=== PATIENT | female | born 1955 | race Hispanic/Latino ===

== ENCOUNTER 2024-09-18 16:27 | Outpatient (CLI) | payer MEDICARE, SELFPAY ==
--- NOTE | ~2024-09-18 | US_ITS ---
Procedure: Duplex Doppler examination of the bilateral carotids. Indication: Occlusion, stenosis Technique: Real time, color-flow and pulse wave Doppler examination of the bilateral carotids was performed. Findings: Quintero scale ultrasonography of the right neck demonstrated probable focal moderate to large plaque at the mid to distal right internal carotid artery. There was demonstration of normal color-flow and Dop pler waveforms within the right common, internal and external carotid arteries. The peak systolic jono ocities in the right common, internal and external carotid arteries were demonstrated to be 93 cm/sec , 236 cm/sec and 89 cm/sec respectively. The right ICA/CCA ratio was 3.1.The proximal right internal carotid artery demonstrates 0% stenosis relative to the normal distal artery lumen diameter. Quintero scale sonography of the left neck demonstrated no significant plaque. There was demonstration of normal color-flow and wave forms within the left common, internal and external carotid arteries. The peak systolic velocities in the left common, internal and external carotid arteries were demonstrate d to be 103cm/sec, 120 cm/sec and 92 cm/sec respectively. The left ICA/CCA ratio was 1.5. The proxima l left internal carotid artery demonstrates 0% stenosis relative to the normal distal artery lumen di ameter. There was antegrade flow demonstrated in the bilateral vertebral arteries. Impression: Elevated velocity at the distal right internal carotid artery is compatible with high-grade (greater than 70%) stenosis. Antegrade flow in the bilateral vertebral arteries. Note: The methodology used is an indirect measurement validated against a direct method (such as the NASCET criteria) that compares diameters at the stenosis to the distal ICA. Reviewed, dictated and finalized at location M. Impression: Elevated velocity at the distal right internal carotid artery is compatible wit h high-grade (greater than 70%) stenosis. Antegrade flow in the bilateral vertebral arteries. Note: The methodology used is an indirect measurement validated against a direct meth od (such as the NASCET criteria) that compares diameters at the stenosis to the distal ICA.
--- OUTSIDE RECORDS SUMMARY | 2024-09-18 16:33 | XMS_ITS | Referral Summary ---
Author Organization [facility] [facility] Address [address] [place] [address] Care Team Providers Care Garnett Mechanic Name Role Phone Mason Deras DO Primary Care Provider + Allergies No known active allergies Medications calcium citrate/vitamin D3 (CALCIUM CITRATE + ORAL) Take by mouth Active multivitamin capsule Take 1 capsule by mouth daily Active rosuvastatin (CRESTOR) 5 mg tablet TAKE 1 TABLET(5 MG) BY MOUTH DAILY 90 tablet 1 11/17/2022 Active aspirin 81 mg enteric coated tablet Take 1 tablet (81 mg total) by mouth daily Every other day Active Active Problems Problem Noted Date Diagnosed Date Encounter for Medicare annual wellness exam 04/19 Assessment & Plan (05/04/2022 1:23 PM ELECTRONIC PUBLICATIONS SPECIALIST): Chart reviewed COVID 08/22/2021 Assessment & Plan (08/22/2021 12:19 PM CDT): She feels no symptoms at the present time. I am going to hold off on antiviral. She will update me in 3 days. If she worsens she will let me know. We discussed 5 and 10 day quarantine. Bilateral carotid artery stenosis 07/30/2021 Assessment & Plan (07/30/2021 10:03 AM CDT): Assessment/plan: Asymptomatic moderate bilateral carotid artery stenosis. Recommend 81 mg ASA and statin therapy for risk factor modification. She will need lifelong surveillance of this. Follow-up in 6 months with repeat duplex as her velocities have increased from her prior study 6 months ago on the right side. Mixed hyperlipidemia 07/30/2021 Assessment & Plan (07/30/2021 8:44 AM CDT): Erin Well woman exam 11/13/2020 Full code status 05/01/2020 Assessment & Plan (05/02/2021 7:36 AM ELECTRONIC PUBLICATIONS SPECIALIST): No changes Assessment & Plan (05/01/2020 9:26 AM ELECTRONIC PUBLICATIONS SPECIALIST): Discussed with patient approximately 20minutes End of life issues/Advanced Directives/Healthcare Surrogate. Discussed DNR. Encouraged to discuss further with family and consult tax associate attorney or complete [place] approved form, which I would be glad to assist them with completion. All questions answered. polst form filled out and signed Immunizations Immunization Administration Dates Next Due Influenza, Quadrivalent, Hig h Dose, Preservative Free, Intrr 02/12/2020 Influenza, Unspecified 01/17/2022,01/17/2021 Pfizer SARS-CoV-2 Monovalent Vaccination (12+ Yrs) PURPLE 04/05/2021,07/10/2020 Pneumococcal Conjugate PCV 13 05/02/2021 Pneumococcal Polysaccharide PPV23 05/01/2020 Social History Tobacco Use Types Packs/Day Years Used Date Smoking Tobacco: Never Smokeless Tobacco: Never Tobacco Cessation:Counseling Given: Not Answered Alcohol Use Standard Drinks/Week Comments Yes 0 (1 standard drink = 0.6 oz pur e alcohol) occa AUDIT-C Answer Date Recorded Q1: How often do you have a drink containing alc ohol? Monthly or less 11/25/2022 Q2: How many drinks containi ng alcohol do you have on a typical day when you are drinking? 1 or 2 11/25/2022 Q3: How often do you have si x or more drinks on one occasion? Never 11/25/2022 PHQ-2 Answer Date Recorded PHQ-2 Total Score (If total score is 3 or more points, staff should administer the PHQ-9) 0 05/04/2022 Personal Safety Answer Date Recorded Have you ever been in or are you currently in a harmful physical or emotional relationship or is someone making you feel afraid or unsafe? Denies 11/25/2022 Comments No Sex and Gender Information Value Date Recorded Sex Assigned at Not on file Legal Sex Female 11:22 AM ELECTRONIC PUBLICATIONS SPECIALIST Gender Identity Female 04/15/2020 12:00 PM ELECTRONIC PUBLICATIONS SPECIALIST Sexual Orientation Not on file Last Filed Vital Signs Vital Sign Reading Time Taken Comments Blood Pressure 124/84 01/20/2024 1:28 PM CDT Pulse 59 11/25/2022 8:05 AM CDT Temperature 36.4 C (97.5 F) 11/25/2022 7:38 AM CDT Respiratory Rate 10 11/25/2022 8:05 AM CDT Oxygen Saturation 99% 11/25/2022 8:05 AM CDT Inhaled Oxygen Concentration - - Weight 56.2 kg (124 lb) 01/20/2024 1:28 PM CDT Height 152.4 cm (5') 01/20/2024 1:28 PM CDT Body Mass Index 24.22 01/20/2024 1:28 PM CDT Plan of Treatment Not on file Medical Devices Implanted Type Area Lumpia Wrapper Maker Device Identifier Shelf Expiration Date Model / Serial / Lot Other - See Comments Other - see comments Bilateral : Tooth Description:Lower left Plate Plate Left: Elbow Procedures Procedure Name Priority Date/Time Associated Diagnosis Comments SCREENING MAMMOGRAM BILATERAL W ROBBIE Schedule Routine, Read Routine (OP Routine) 04/29/2024 7:53 AM ELECTRONIC PUBLICATIONS SPECIALIST Breast cancer screening by mammogram DEXA AXIAL SKELETON BONE DENSITY 1 OR MORE SITES Schedule Routine, Read Routine (OP Routine) 03/04/2023 2:08 PM ELECTRONIC PUBLICATIONS SPECIALIST Well woman exam with routine gynecological exam Age-related osteoporosis without current pathological fracture COLONOSCOPY 11/25/2022 7:13 AM CDT HEPATITIS C ANTIBODY Routine 05/08/2021 11:28 AM ELECTRONIC PUBLICATIONS SPECIALIST Screening for colon cancer from Last 3 Months or Most Recently Relevant to Health Maintenance Results * SCREENING MAMMOGRAM BILATERAL W ROBBIE (04/29/2024 7:53 AM ELECTRONIC PUBLICATIONS SPECIALIST) Anatomical Region Laterality Modality Breast Bilateral Mammography Impressions 05/01/2024 7:58 AM ELECTRONIC PUBLICATIONS SPECIALIST BI-RADS ATLAS category (overall): 1 - Negative There is no mammographic evidence of malignancy. A 1 year screening mammogram is recommended. The patient has been or will be contacted. We recommend annual screening mammography for women at average risk of breast cancer beginning at age 40, based on guidelines of the [employer] (ACR Practice Parameter for the Performance of Screening and Diagnostic Mammography) and [employer]. For women with and elevated risk of breast cancer, please refer to the ACR Practice Parameter for specific screening recommendations. The patient will be entered into a reminder system with a target due date of 1 year for her next screening exam. Narrative 05/01/2024 7:58 AM ELECTRONIC PUBLICATIONS SPECIALIST SCREENING MAMMOGRAM BILATERAL W ROBBIE: 04/29/24 The study was acquired using full field digital technology and interpreted from soft copy. 2D digital mammographic views, as well as 3D digital tomosynthesis were performed in the CC and MLO projections. CLINICAL: Breast cancer screening by mammogram. No relevant medical history has been documented for this patient. History of breast cancer in Neg Hx. COMPARISONS: 04/28/2023 Screening Mammogram Bilateral W Robbie 04/27/2022 Screening Mammogram Bilateral W Robbie 01/02/2021 SCREENING MAMMOGRAM BILATERAL W ROBBIE 12/01/2019 Breast Imaging Screening Outside Reference 11/29/2018 Breast Imaging Screening Outside Reference BREAST TISSUE: There are scattered areas of fibroglandular density. FINDINGS: There is no new suspicious finding in either breast on mammogram. us Gabby Argueta MD IMG MAMMO PROCEDURES Final Res ult * Dexa Axial Skeleton Bone Density 1 Or 2 Site (03/04/2023 2:08 PM ELECTRONIC PUBLICATIONS SPECIALIST) Anatomical Region Laterality Modality Body N/A Mammography 03/08/2023 5:11 AM ELECTRONIC PUBLICATIONS SPECIALIST Narrative 03/08/2023 5:12 AM ELECTRONIC PUBLICATIONS SPECIALIST EXAM DESCRIPTION: DEXA AXIAL SKELETON BONE DENSITY 1 OR MORE SITES REASON FOR STUDY: 67 y/o year old F with given history of: Postmenopausal status. History of prior fracture and parent with hip fracture. Patient has taken/is taking vitamin-D and calcium. History of uterine carcinoma Lumpia Wrapper Maker/Model: Hologic Horizon A (S/N [id number]) CLINICAL INFORMATION: Current height: 60 inches Maximum height: 61 inches Weight: 114 pounds Risk factors: Prior fracture and parent with hip fracture COMPARISON: 01/02/2021 FINDINGS: AP LUMBAR SPINE L1-L4: Total BMD is 0.856 g/cm2 T-score is -1.7 This is a 7.9% increase in comparison to prior exam which is statistically significant. LEFT HIP: Total BMD is 0.811 g/cm2 T-score is -1.1 This is a 0% change in comparison to prior exam which is not statistically significant. Femoral neck BMD is 0.677 g/cm2 T-score is -1.5 FRAX: 10 year risk for a major osteoporotic fracture is 14 %, 10 year risk for a hip fracture is 1.9 % IMPRESSION: Low bone mass REFERENCE: Bone mineral density: Normal (T-score above or = -1.0) Low bone mass (T-score between -1.0 and -2.5) replaces the previously used term osteopenia Osteoporosis (T-score = or below -2.5) Medical evaluation for secondary causes of low bone mineral density may be appropriate. FRAX is a World Health Organization validated fracture risk assessment tool that calculates a person's 10 year probability of a major osteoporosis related fracture and hip fracture. According to the National Osteoporosis Foundation guidelines, postmenopausal women and men age 50 or older with low bone mass and a 10 year probability of a major osteoporosis related fracture = or greater than 20% or a 10 year probability of a hip fracture = or greater than 3% should be considered for treatment. For further information, including treatment recommendations, please refer to the 2019 ISCD Official Positions (http://www.iscd.org) and the NOF's Clinician's Guide to Prevention and Treatment of Osteoporosis (http://www.nof.org/professionals/clinical-guidelines) THIS IS AN ELECTRONICALLY VERIFIED FINAL REPORT 03/08/2023 5:12 AM - Electronically signed by Anayeli Uribe M.D. TW: TW Report ID: [id number] Reading Location: [id number] Procedure Note Anayeli Uribe MD - 03/08/2023 EXAM DESCRIPTION: DEXA AXIAL SKELETON BONE DENSITY 1 OR MORE SITES REASON FOR STUDY: 67 y/o year old F with given history of:Postmenopausal status. History of prior fracture and parent with hip fracture. Patienthas taken/is taking vitamin-D and calcium. History of uterine carcinoma Lumpia Wrapper Maker/Model: Patient Communicator A (S/N [id number]) CLINICAL INFORMATION: Current height: 60 inches Maximum height: 61 inches Weight: 114 pounds Risk factors: Prior fracture and parent with hip fracture COMPARISON: 01/02/2021 FINDINGS: AP LUMBAR SPINE L1-L4: Total BMD is 0.856 g/cm2 T-score is -1.7 This is a 7.9% increase in comparison to prior exam which is statistically significant. LEFT HIP: Total BMD is 0.811 g/cm2 T-score is -1.1 This is a 0% change in comparison to prior exam which is not statistically significant. Femoral neck BMD is 0.677 g/cm2 T-score is -1.5 FRAX: 10 year risk for a major osteoporotic fracture is 14 %, 10 year risk for ahip fracture is 1.9 % IMPRESSION: Low bone mass REFERENCE: Bone mineral density: Normal (T-score above or = -1.0) Low bone mass (T-score between -1.0 and -2.5) replaces thepreviously used term osteopenia Osteoporosis (T-score = or below -2.5) Medical evaluation for secondary causes of low bone mineral density may be appropriate. FRAX is a World Health Organization validated fracture risk assessmenttool that calculates a person's 10 year probability of a major osteoporosisrelated fracture and hip fracture. According to the National OsteoporosisFoundation guidelines, postmenopausal women and men age 50 or older with low bonemass and a 10 year probability of a major osteoporosis related fracture = or greater than 20% or a 10 year probability of a hip fracture = or greaterthan 3% should be considered for treatment. For further information, including treatment recommendations, please referto the 2019 ISCD Official Positions (http://www.iscd.org) and the NOF's Clinician's Guide to Prevention and Treatment of Osteoporosis (http://www.nof.org/professionals/clinical-guidelines) THIS IS AN ELECTRONICALLY VERIFIED FINAL REPORT 03/08/2023 5:12 AM - Electronically signed by Anayeli Uribe M.D. TW: TW Report ID: [id number] Reading Location: [place] [id number] us Gabby Argueta MD IMG DXA PROCEDURES Final Resul t * COLONOSCOPY (11/25/2022 7:13 AM CDT) Anatomical Region Laterality Modality Other Narrative Procedure Note Herve Bledsoe MD - 11/25/2022 7:13 AM CDT [facility] GI ENDOSCOPY Patient Name: Bibi Camilo Procedure Date: 11/25/2022 7:13 AM Date of : 1955 Admit Type: Outpatient Age: 67 Gender: Female Attending MD: Herve Bledsoe M.D. Room: [facility] ENDOSCOPY ROOM 06 Note Status: Finalized Procedure: Colonoscopy Indications: Screening for colorectal malignant neoplasm, Family history of colon cancer Referring MD: Providers: Herve Bledsoe M.D. Medicines: Monitored Anesthesia Care Complications: No immediate complications. Estimated Blood Loss: Estimated blood loss: none. Procedure: The benefits, risks and alternatives of theprocedure and sedation were discussed and informed consentwas obtained. All questions were answered. Please referto the signed informed consent document in the medical record. The scope was passed under direct vision.The [id number] colonoscope was introduced through theanus and advanced to the cecum, identified byappendiceal orifice and ileocecal valve. The colonoscopy was performed without difficulty. The patient tolerated the procedure well. The quality of the bowel preparation was good. Scope withdrawal time was 10 minutes. Prep was administered in a split dose. Findings: The perianal and digital rectal examinations were normal. A diminutive polyp was found in the descending colon. The polyp was removed with a cold biopsy forceps. Resection and retrieval were complete. Non-bleeding internal hemorrhoids were found during retroflexion. The hemorrhoids were small. The exam was otherwise without abnormality. Impression: - One diminutive polyp in the descending colon, removed with a cold biopsy forceps. Resected and retrieved. - Non-bleeding internal hemorrhoids. - The examination was otherwise normal. Recommendation: - Patient has a contact number available for emergencies. The signs and symptoms of potential delayed complications were discussed with thepatient. Return to normal activities tomorrow. Written discharge instructions were provided to thepatient. - High fiber diet. - Continue present medications. - Await pathology results. - Repeat colonoscopy in 5 years for surveillance. Herve Bledsoe M.D. Herve Bledsoe M.D. 11/25/2022 7:36:20 AM . Number of Addenda: 0 Note Initiated On: 11/25/2022 7:13 AM Recognized by the [employer] for promoting quality in endoscopy us Herve Bledsoe MD ENDOSCOPY PROCEDURES Final Resul t * Hepatitis C antibody (05/08/2021 11:28 AM ELECTRONIC PUBLICATIONS SPECIALIST) Hep C Ab <0.1 0.0 - 0.9 s/co ratio [facility] - 01 Comment: Negative: < 0.8 Indeterminate: 0.8 - 0.9 Positive: > 0.9 The CDC recommends that a positive HCV antibody result be followed up with a HCV Nucleic Acid Amplification test (650892). Blood specimen (specimen) 05/08/2021 11:28 AM ELECTRONIC PUBLICATIONS SPECIALIST 05/08/2021 Narrative [facility] - 05/09/2021 7:36 AM ELECTRONIC PUBLICATIONS SPECIALIST Performed at: - [facility] [address] [id number] Data Compiler: Geo Batres PhD, Phone: [phone] Mason Deras DO LAB MICROBIOLOGY - GENER AL ORDERABLES Final Result [facility] - from Last 3 Months or Most Recently Relevant to Health Maintenance Insurance [facility] MEDICARE ADVANTAGE [facility] MEDICARE ADVANTAGE [facility] MEDICARE ADVANTAGE Advance Directives For more information, please contact: [phone] Documents on File Type Date Recorded Patient Scale Attendant Expl anation ADVANCE DIRECTIVE 05/01/2020 Care Teams Garnett Mechanic Relationship Specialty Start Date End Date Mason Deras DO PCP - General Family Medicine 04/15/20
--- OUTSIDE RECORDS SUMMARY | 2024-09-18 16:33 | XMS_ITS | Data Portability ---
Author Organization [facility], [address] [facility] ([place]) Address [address] [place] [address] Care Team Providers Care Boring Machine Operator Vertical Name Role Phone JAVIER OWUSU Vascular Surgeon GLORIA KOHLER Primary Care Provider [phone] Assessment Encounter Date Assessment Date Assessment LastModified by Organization Details LastModified Time 09/30/2023 09/30/2023 Impression: Bibi is doing well with regard to carotid disease. She has a right carotid stenosis that is in the midportion of the ICA where the artery is tortuous. This might represent fibromuscular dysplasia, but does not appear to resemble plaque. This stenosis is in the 50 to 60% range on today's duplex and all previous duplexes that I have reviewed. Her left carotid stenosis was in the 16 to 49% range today. Plan: I reassured her that I did not think she was at significant risk for stroke. However I would continue to take the aspirin 3 times weekly. Carotid territory symptoms were reviewed with her. We will obtain a follow-up carotid duplex at the hospital in [place] in 1 year and contact her with those results. [email or web address] Not available 10/01/2023 07:24:29 Plan of Treatment Reminders Order Date Submit Date Provider Last Modified By Organization Details Last Modified Time Details Appointments None record ed. Lab None record ed. Referral None record ed. Procedures None record ed. Surgeries None record ed. Imaging None record ed. Medication Orders None record ed. Patient TargetsNo targets recorded. Patient InstructionsNo instructions recorded. Reason for Referral None Reported. Results Created Date Observation Date Name Description Value Unit Range Abnormal Flag Note LastModifiedBy Organization Detail LastModifiedTime 09/30/1909/30/2023 US, carot id arter y [facility] [address] [place] [id number] Teleph one [phone] Name: Bibi Camilo [id number] Exam Date: 2023 Age: 68 Physic norman: MD Gaurav, Stanley paul : 1955 Examin ation: US CAROTI D BILATE RAL US CAROTI D BILATE RAL Indica tion: A caroti d duplex was perfor med in this 68-yea r-old woman with a histor y of mild caroti d stenos is. Findin gs: The right caroti d artery is well seen. There is no plaque or athero sclero sis in the bulb. In the mid ICA there is some mural thicke rodriguez and tortuo sity. The CCA has a veloci ty of 81 cm/s. The right ICA has a peak systol ic veloci ty of 221 cm/s with a peak end-di astoli c veloci ty of 80 cm/s. Modera tely severe spectr al broade rodriguez is found. The right ECA is patent and has a veloci ty of 78 cm/s. The right verteb ral artery is patent with antegr gareth flow. The left caroti d artery also is well seen. Again there is no plaque or mural thicke rodriguez in the bulb. In the mid to distal ICA there is some spectr al broade rodriguez noted. The CCA has a veloci ty of 93 cm/s. The left ICA has a peak systol ic veloci ty of 119 cm/s with a peak end-di astoli c veloci ty of 50 cm/s. Modera te spectr al broade rodriguez is found. The left ECA is patent with a veloci ty of 91 cm/s. The left verteb ral artery is patent with antegr gareth flow. IMPRES ROSEY: 1. There is a low 50-79% stenos is of the right ICA. This is in the mid ICA and is unchan ged from the prior duplex of 023. 2. There is a 16-49% stenos is of the left ICA. Electr onical ly signed in [place] cribe by: STANLEY OWUSU MD on:09/17 2:06 PM cc: INTERFACE Sc Only - Sc Radiology [address] [place] [address], [id number], 09/30/2023 15:09:15 Result Notes None recorded. Problems Name Problem SNOMED Code Status Onset Date Resolution Date Notes Provider Name and Address Organization Details Recorded Time Carotid artery stenosis 80556575 Active [address] [facility] 4 13:21:07 Problem Notes None recorded. Procedures Surgical History Date Name Laterality Status Provider Name and Address Organization Details Recorded Time 04/28/19 24 Date of Last Mammogram completed Not Available Health Note 09/23/2023 15:15:11 delivery completed Not Available Health Note 09/23/2023 15:15:08 Colonoscopy with biopsy completed Not Available Health Note 09/23/2023 15:15:08 Total hysterectomy completed Not Available Health Note 09/23/2023 15:15:08 Imaging Results None recorded. Procedure Notes None recorded. Medical Equipment None Reported. Medications Name Sig Start Date Stop Date Status Note LastModified by Organization Details LastModified Time aspirin 81 mg chewable tablet Chew 1 tablet every other day by oral route. active Not Available Not Available No t Available rosuvastatin 5 mg tablet TAKE 1 TABLET BY MOUTH DAILY active Not Available Not Available No t Available multivitamin one daily active Not Available Not Available No t Available sodium,potass ium,mag sulfates 17.5 gram-3.13 gram-1.6 gram oral soln 09/27 completed Not Available Not Available Not Available Vitals Date Recorded Body weight Heart rate Oxygen saturation Oxygen saturation in Arterial blood by Pulse oximetry Systolic blood pressure Diastolic blood pressure Provider Name and Address Organization Details Last Updated DateTime 4 72110.8 6 g 73 /min 99 % 99 % 160 mm[Hg] 70 mm[Hg] [address] [facility] 4 11:28:09 Social History Question Answer Notes LastModified by Organizat ion Details LastModified Time Do You Have An Advance Directive? Yes [email or web address] Information not available 09/23/2023 What Is Your Level Of Caffeine Consumption? Occasional [email or web address] Information not available 09/23/2023 What Is Your Code Status? Full Code [email or web address] Information not available 09/23/2023 How Many Times Per Week Do You Exercise? 5-7 Times Per Week [email or web address] Information not available 09/23/2023 Do You Have A Medical Power Of Inventory Analyst? Yes [email or web address] Information not available 09/23/2023 What Was The Date Of Your Most Recent Tobacco Screening? 09/30/2023 [email or web address] Information not available 09/23/2023 What Is Your Relationship Status? [email or web address] Information not available 09/23/2023 Sex: Unknown Functional Status Question Answer Note LastModified by Organizat ion Details LastModified Time How many times per week do you consume alcohol? Less than 1 time per week [email or web address] Information not available 09/23/2023 Do you use any illicit or recreational drugs? No [email or web address] Information not available 09/23/2023 What is your level of alcohol consumption? Occasional [email or web address] Information not available 09/23/2023 Are you currently employed? 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 Heavy [email or web address] Information not available 09/23/2023 Mental Status None recorded. Family History Relationship Description Onset Age of this Age Resolved Age Notes LastModified by Organization Details LastModified Time Father Arthritis [email or web address] Not available 09/23/2023 15:15:07 Brother Family history of malignant neoplasm [email or web address] Not available 2023 15:15:07 Brother Hypertensive disorder [email or web address] Not available 2023 15:15:07 Brother Cerebrovascu lar accident [email or web address] Not available 09/2023 15:15:07 Mother Hypertensive disorder [email or web address] Not available 2023 15:15:07 Mother Cerebrovascu lar accident [email or web address] Not available 09/2023 15:15:07 Medical History Condition Response Anxiety Disorder N Diabetes N Bleeding Disorder N Attention-deficit Hyperactivity Disorder N High Blood Pressure N Arthritis N Hyperlipidemia Y Cancer Y Thyroid Problems N Stroke N COPD N Depression N Asthma N Seizures N Anemia N Heart Disease N Fibromyalgia N Osteoporosis Y Kidney Disease N Gynecological History Statement/Question Response If Post Menopausal, Age at Menopause 51 Age at Menarche 12 Date of Last Mammogram 04/28/2023 Obstetrics History GPAL:G 0 P 0 0 0 0 Past Encounters Encounter ID Performer Location Encounter Start Date Encounter Closed Date Diagnosis/Indication Diagnosis SNOMED-CT Code Diagnosis ICD10 Code Diagnosis Note [id number] Javier Owusu MD [address] [facility] ([place] [address] [place] [phone] 09/30/2023 10:47:40 09/30/2023 15:50:36 Carotid artery stenosis 42491782 I65.29 Health Concerns Section Related Observation LastModified by Organization Detai ls LastModified Time None Recorded Concern Status LastModified by Organization Details LastModified Time None Recorded Advance Directives Directive Y: Payers Insurance Date Sequence Insurance Name Policy Number Policy Sood Covered Member ID Sood Member ID Guarantor Name 10/05/2023 1 [facility] (MEDICARE REPLACEMENT/A DVANTAGE - HMO) [id number] Bibi Camilo [id number] Bibi Camilo Notes Date Note Type Note Provider Name and Address Organization Details Recorded Time 09/30/2023 text/html Bibi Camilo returns to the office today for annual follow-up of her carotid stenosis. She came alone. 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 Today she denies any symptoms that would suggest a TIA or stroke. She does take an 81 mg aspirin every other day and is on a statin. She exercises 6 days/week and has not been hospitalized for any reason. Javier Owusu MD [facility], [phone], [facility] 10/01/2023 07:25:02 OBGyn Episode No OBEpisode recorded.
--- OUTSIDE RECORDS SUMMARY | 2024-09-18 16:33 | XMS_ITS | Data Portability ---
[facility] [address] [place] [address] Assessment No assessment recorded. Plan of Treatment Reminders Order Date Submit Date Provider Last Modified By Organization Details Last Modified Time Details Appointments ANY 15 2025 02:00P Dea Deras, DO Not available Not available Not available Lab PTH (parathyr oid hormone), intact, serum or plasma 2024 025 YANN Isabel, [address], [place], [address], 06/22/2024 12:37:29 calcium, serum or plasma 2024 025 [id number] [facility], [address], [place], [address], 06/26/2024 15:09:08 CBC w/ auto diff 2024 025 YANN Isabel, [address], [place], [address], 06/22/2024 12:37:28 BMP, serum or plasma 2024 025 YANN Isabel, [address], [place], [address], 06/22/2024 12:37:26 lipid panel, serum 2024 025 YANN Isabel, [address], [place], [address], 06/22/2024 12:37:23 hepatic function panel, serum 2024 025 YANN Isabel, [address], [place], [address], 06/22/2024 12:37:25 TSH + free T4, serum 2024 025 YANN Isabel, [address], [place], [address], 06/22/2024 12:37:22 vitamin B12, serum 2024 025 YANN Isabel, [address], [place], [address], 06/22/2024 12:37:27 vitamin D, 25-hydrox y, total, serum 2024 025 YANN Isabel, [address], [place], [address], 06/22/2024 12:37:31 lipid panel, serum 2023 024 YANN Isabel, [address], [place], [address], 06/17/2023 08:25:29 BMP, serum or plasma 2023 024 YANN Isabel, [address], [place], [address], 06/17/2023 08:25:30 CBC w/ auto diff 2023 024 YANN Isabel, [address], [place], [address], 06/17/2023 08:25:30 hepatic function panel, serum 2023 024 YANN Isabel, [address], [place], [address], 06/17/2023 08:25:29 Referral None recorded. Procedures None recorded. Surgeries None recorded. Imaging None recorded. Medication Orders None recorded. Patient TargetsNo targets recorded. Patient InstructionsNo instructions recorded. Reason for Referral None Reported. Results Created Date Observation Date Name Description Value Unit Range Abnormal Flag Note LastModifiedBy Organization Detail LastModifiedTime 06/16/19 24 06/17/2023 LIPID PANEL cholesterol, total 171 mg/dL 100-19 9 Not Available [facility] ([facility]) [address] [place], [address], 06/17/2023 08:25:29 06/16/19 24 06/17/2023 LIPID PANEL triglyceride s 92 mg/dL 0-149 Not Available [facility] ([facility]) [address] [place], [address], 06/17/2023 08:25:29 06/16/19 24 06/17/2023 LIPID PANEL HDL cholesterol 88 mg/dL >39 Not Available [facility] ([facility] [address] [place], [address], 06/17/2023 08:25:29 06/16/19 24 06/17/2023 LIPID PANEL VLDL cholesterol marisol 16 mg/dL 5-40 Not Available [facility] ([facility]) [address] [place], [address], 06/17/2023 08:25:29 06/16/19 24 06/17/2023 LIPID PANEL LDL chol calc ([facility]) 67 mg/dL 0-99 Not Available [facility] ([facility]) [address] [place], [address], 06/17/2023 08:25:29 06/16/19 24 06/17/2023 HEPAT IC FUNCT ION PANEL (7) protein, total 7.7 g/dL 6.0-8. 5 Not Available [facility] ([facility]) [address] [place], [address], 06/17/2023 08:25:29 06/16/19 24 06/17/2023 HEPAT IC FUNCT ION PANEL (7) albumin 5.2 g/dL 3.9-4. 9 above high normal Not Available [facility] ([facility]) [address] [facility] [place], [address], 06/17/2023 08:25:29 06/16/19 24 06/17/2023 HEPAT IC FUNCT ION PANEL (7) bilirubin, total 1.1 mg/dL 0.0-1. 2 Not Available [facility] ([facility]) [address] [facility] [place], [address], 06/17/2023 08:25:29 06/16/19 24 06/17/2023 HEPAT IC FUNCT ION PANEL (7) bilirubin, direct 0.27 mg/dL 0.00-0 .40 Not Available [facility] ([facility]) [address] [facility], [place], [address], 06/17/2023 08:25:29 06/16/19 24 06/17/2023 HEPAT IC FUNCT ION PANEL (7) alkaline phosphatase 86 IU/L 44-121 Not Available [facility] ([facility] [address] [facility] [place], [address], 06/17/2023 08:25:29 06/16/19 24 06/17/2023 HEPAT IC FUNCT ION PANEL (7) AST (SGOT) 27 IU/L 0-40 Not Available [facility] ([facility]) [address] [facility] [place], [address], 06/17/2023 08:25:29 06/16/19 24 06/17/2023 HEPAT IC FUNCT ION PANEL (7) ALT (SGPT) 18 IU/L 0-32 Not Available [facility] ([facility]) [address] [facility] [place], [address], 06/17/2023 08:25:29 06/16/19 24 06/17/2023 BASIC METAB OLIC PANEL (8) glucose 81 mg/dL 70-99 Not Available [facility] ([facility]) [address] [place], [address], 06/17/2023 08:25:30 06/16/19 24 06/17/2023 BASIC METAB OLIC PANEL (8) BUN 20 mg/dL 8-27 Not Available [facility] ([facility]) [address] [place], [address], 06/17/2023 08:25:30 06/16/19 24 06/17/2023 BASIC METAB OLIC PANEL (8) creatinine 0.98 mg/dL 0.57-1 .00 Not Available [facility] ([facility]) [address] [place], [address], 06/17/2023 08:25:30 06/16/19 24 06/17/2023 BASIC METAB OLIC PANEL (8) eGFR 63 mL/mi n/1.7 3 >59 Not Available [facility] ([facility]) [address] [place], [address], 06/17/2023 08:25:30 06/16/19 24 06/17/2023 BASIC METAB OLIC PANEL (8) BUN/creatini ne ratio 20 12-28 Not Available [facility] ([facility]) [address] [place], [address], 06/17/2023 08:25:30 06/16/19 24 06/17/2023 BASIC METAB OLIC PANEL (8) sodium 136 mmol/ L 134-14 4 Not Available [facility] ([facility]) [address] [place], [address], 06/17/2023 08:25:30 06/16/19 24 06/17/2023 BASIC METAB OLIC PANEL (8) potassium 4.3 mmol/ L 3.5-5. 2 Not Available [facility] ([facility]) [address] [facility], [place], [address], 06/17/2023 08:25:30 06/16/19 24 06/17/2023 BASIC METAB OLIC PANEL (8) chloride 96 mmol/ L 96-106 Not Available [facility] ([facility]) [address] [place], [address], 06/17/2023 08:25:30 06/16/19 24 06/17/2023 BASIC METAB OLIC PANEL (8) carbon dioxide, total 23 mmol/ L 20- Not Available [facility] ([facility]) [address] [place], [address], 06/17/2023 08:25:30 06/16/19 24 06/17/2023 BASIC METAB OLIC PANEL (8) calcium 11.2 mg/dL 8.7-10 .3 above high normal Not Available [facility] ([facility]) [address] [place], [address], 06/17/2023 08:25:30 06/16/19 24 06/17/2023 CBC WITH DIFFE RENTI AL/PL ATELE T WBC 7.5 x10e3 /uL 3.4-10 .8 Not Available [facility] ([facility]) [address] [place], [address], 06/17/2023 08:25:30 06/16/19 24 06/17/2023 CBC WITH DIFFE RENTI AL/PL ATELE T RBC 4.87 x10e6 /uL 3.77-5 .28 Not Available [facility] ([facility]) [address] [place], [address], 06/17/2023 08:25:30 06/16/19 24 06/17/2023 CBC WITH DIFFE RENTI AL/PL ATELE T hemoglobin 13.9 g/dL 11.1-1 5.9 Not Available [facility] ([facility] [address] [facility] [place], [address], 06/17/2023 08:25:30 06/16/19 24 06/17/2023 CBC WITH DIFFE RENTI AL/PL ATELE T hematocrit 43.0 % 34.0-4 6.6 Not Available [facility] ([facility]) [address] [facility], [place], [address], 06/17/2023 08:25:30 06/16/19 24 06/17/2023 CBC WITH DIFFE RENTI AL/PL ATELE T MCV 88 fL 79-97 Not Available [facility] ([facility]) [address] [place], [address], 06/17/2023 08:25:30 06/16/19 24 06/17/2023 CBC WITH DIFFE RENTI AL/PL ATELE T MCH 28.5 pg 26.6-3 3.0 Not Available [facility] ([facility]) [address] [facility], [place], [address], 06/17/2023 08:25:30 06/16/19 24 06/17/2023 CBC WITH DIFFE RENTI AL/PL ATELE T MCHC 32.3 g/dL 31.5-3 5.7 Not Available [facility] ([facility]) [address] [place], [address], 06/17/2023 08:25:30 06/16/19 24 06/17/2023 CBC WITH DIFFE RENTI AL/PL ATELE T RDW 11.7 % 11.7-1 5.4 Not Available [facility] ([facility]) [address] [place], [address], 06/17/2023 08:25:30 06/16/19 24 06/17/2023 CBC WITH DIFFE RENTI AL/PL ATELE T platelets 242 x10e3 /uL 150-45 0 Not Available [facility] ([facility]) [address] [place], [address], 06/17/2023 08:25:30 06/16/19 24 06/17/2023 CBC WITH DIFFE RENTI AL/PL ATELE T neutrophils 70 % notest ab. Not Available [facility] ([facility]) [address], [place], [address], 06/17/2023 08:25:30 06/16/19 24 06/17/2023 CBC WITH DIFFE RENTI AL/PL ATELE T lymphs 19 % notest ab. Not Available [facility] ([facility]) [address], [place], [address], 06/17/2023 08:25:30 06/16/19 24 06/17/2023 CBC WITH DIFFE RENTI AL/PL ATELE T monocytes 9 % notest ab. Not Available [facility] ([facility]) [address], [place], [address], 06/17/2023 08:25:30 06/16/19 24 06/17/2023 CBC WITH DIFFE RENTI AL/PL ATELE T eos 1 % notest ab. Not Available [facility] ([facility]) [address] [facility], [place], [address], 06/17/2023 08:25:30 06/16/19 24 06/17/2023 CBC WITH DIFFE RENTI AL/PL ATELE T basos 1 % notest ab. Not Available [facility] ([facility]) [address] [facility], [place], [address], 06/17/2023 08:25:30 06/16/19 24 06/17/2023 CBC WITH DIFFE RENTI AL/PL ATELE T neutrophils (absolute) 5.3 x10e3 /uL 1.4-7. 0 Not Available [facility] ([facility]) [address] [facility], [place], [address], 06/17/2023 08:25:30 06/16/19 24 06/17/2023 CBC WITH DIFFE RENTI AL/PL ATELE T lymphs (absolute) 1.5 x10e3 /uL 0.7-3. 1 Not Available [facility] ([facility]) [address] [place], [address], 06/17/2023 08:25:30 06/16/19 24 06/17/2023 CBC WITH DIFFE RENTI AL/PL ATELE T monocytes(ab solute) 0.6 x10e3 /uL 0.1-0. 9 Not Available [facility] ([facility]) [address] [place], [address], 06/17/2023 08:25:30 06/16/19 24 06/17/2023 CBC WITH DIFFE RENTI AL/PL ATELE T eos (absolute) 0.1 x10e3 /uL 0.0-0. 4 Not Available [facility] ([facility]) [address] [place], [address], 06/17/2023 08:25:30 06/16/19 24 06/17/2023 CBC WITH DIFFE RENTI AL/PL ATELE T baso (absolute) 0.0 x10e3 /uL 0.0-0. 2 Not Available [facility] ([facility]) [address] [place], [address], 06/17/2023 08:25:30 06/16/19 24 06/17/2023 CBC WITH DIFFE RENTI AL/PL ATELE T immature granulocytes 0 % notest ab. Not Available [facility] ([facility]) [address] [place], [address], 06/17/2023 08:25:30 06/16/19 24 06/17/2023 CBC WITH DIFFE RENTI AL/PL ATELE T immature grans (abs) 0.0 x10e3 /uL 0.0-0. 1 Not Available [facility] ([facility]) [address] [place], [address], 06/17/2023 08:25:30 06/23/19 24 06/24/2023 PTH INTAC T+MARISOL CIUM, IONIZ ED calcium, ionized, serum 4.9 mg/dL 4.5-5. 6 Not Available [facility] ([facility]) [address] [place], [address], 06/24/2023 15:11:42 06/23/19 24 06/24/2023 PTH INTAC T+MARISOL CIUM, IONIZ ED PTH, intact 35 pg/mL 15 Not Available [facility] ([facility]) [address] [place], [address], 06/24/2023 15:11:42 06/23/19 24 06/24/2023 HEPAT IC FUNCT ION PANEL (7) protein, total 7.2 g/dL 6.0-8. 5 Not Available [facility] ([facility]) [address] [place], [address], 06/24/2023 15:11:43 06/23/19 24 06/24/2023 HEPAT IC FUNCT ION PANEL (7) albumin 4.9 g/dL 3.9-4. 9 Not Available [facility] ([facility]) [address] [place], [address], 06/24/2023 15:11:43 06/23/19 24 06/24/2023 HEPAT IC FUNCT ION PANEL (7) bilirubin, total 0.7 mg/dL 0.0-1. 2 Not Available [facility] ([facility]) [address] [place], [address], 06/24/2023 15:11:43 06/23/19 24 06/24/2023 HEPAT IC FUNCT ION PANEL (7) bilirubin, direct 0.19 mg/dL 0.00-0 .40 Not Available [facility] ([facility]) [address] [place], [address], 06/24/2023 15:11:43 06/23/19 24 06/24/2023 HEPAT IC FUNCT ION PANEL (7) alkaline phosphatase 77 IU/L 44-121 Not Available [facility] ([facility]) [address] [facility] [place], [address], 06/24/2023 15:11:43 06/23/19 24 06/24/2023 HEPAT IC FUNCT ION PANEL (7) AST (SGOT) 24 IU/L 0-40 Not Available [facility] ([facility]) [address] [place], [address], 06/24/2023 15:11:43 06/23/19 24 06/24/2023 HEPAT IC FUNCT ION PANEL (7) ALT (SGPT) 18 IU/L 0-32 Not Available [facility] ([facility]) [address] [place], [address], 06/24/2023 15:11:43 06/22/19 25 06/22/2024 TSH+F REE T4 TSH 2.360 uIU/m L 0.450- 4.500 Not Available [facility] ([facility]) [address] [place], [address], 06/22/2024 12:37:22 06/22/19 25 06/22/2024 TSH+F REE T4 T4,free(dire ct) 1.47 NG/dL 0.82-1 .77 Not Available [facility] ([facility]) [address] [place], [address], 06/22/2024 12:37:22 06/22/19 25 06/22/2024 LIPID PANEL cholesterol, total 190 mg/dL 100-19 9 Not Available [facility] ([facility]) [address] [place], [address], 06/22/2024 12:37:23 06/22/19 25 06/22/2024 LIPID PANEL triglyceride s 124 mg/dL 0-149 Not Available [facility] ([facility]) [address] [place], [address], 06/22/2024 12:37:23 06/22/19 25 06/22/2024 LIPID PANEL HDL cholesterol 79 mg/dL >39 Not Available [facility] ([facility]) [address] [place], [address], 06/22/2024 12:37:23 06/22/19 25 06/22/2024 LIPID PANEL VLDL cholesterol marisol 21 mg/dL 5-40 Not Available [facility] ([facility]) [address] [place], [address], 06/22/2024 12:37:23 06/22/19 25 06/22/2024 LIPID PANEL LDL chol calc ([facility]) 90 mg/dL 0-99 Not Available [facility] ([facility] [address] [place], [address], 06/22/2024 12:37:23 06/22/19 25 06/22/2024 HEPAT IC FUNCT ION PANEL (7) protein, total 7.5 g/dL 6.0-8. 5 Not Available [facility] ([facility]) [address] [place], [address], 06/22/2024 12:37:24 06/22/19 25 06/22/2024 HEPAT IC FUNCT ION PANEL (7) albumin 4.9 g/dL 3.9-4. 9 Not Available [facility] ([facility]) [address] [place], [address], 06/22/2024 12:37:24 06/22/19 25 06/22/2024 HEPAT IC FUNCT ION PANEL (7) bilirubin, total 0.9 mg/dL 0.0-1. 2 Not Available [facility] ([facility]) [address] [place], [address], 06/22/2024 12:37:24 06/22/19 25 06/22/2024 HEPAT IC FUNCT ION PANEL (7) bilirubin, direct 0.28 mg/dL 0.00-0 .40 Not Available [facility] ([facility]) [address] [facility] [place], [address], 06/22/2024 12:37:24 06/22/19 25 06/22/2024 HEPAT IC FUNCT ION PANEL (7) alkaline phosphatase 107 IU/L 44-121 Not Available [facility]) [address] [facility] [place], [address], 06/22/2024 12:37:24 06/22/19 25 06/22/2024 HEPAT IC FUNCT ION PANEL (7) AST (SGOT) 23 IU/L 0-40 Not Available [facility] ([facility]) [address] [place], [address], 06/22/2024 12:37:24 06/22/19 25 06/22/2024 HEPAT IC FUNCT ION PANEL (7) ALT (SGPT) 18 IU/L 0-32 Not Available [facility] ([facility]) [address] [place], [address], 06/22/2024 12:37:24 06/22/19 25 06/22/2024 BASIC METAB OLIC PANEL (8) glucose 91 mg/dL 70-99 Not Available [facility] ([facility]) [address] [place], [address], 06/22/2024 12:37:26 06/22/19 25 06/22/2024 BASIC METAB OLIC PANEL (8) BUN 14 mg/dL 8-27 Not Available [facility] ([facility]) [address] [place], [address], 06/22/2024 12:37:26 06/22/19 25 06/22/2024 BASIC METAB OLIC PANEL (8) creatinine 0.76 mg/dL 0.57-1 .00 Not Available [facility] ([facility]) [address] [place], [address], 06/22/2024 12:37:26 06/22/19 25 06/22/2024 BASIC METAB OLIC PANEL (8) eGFR 85 mL/mi n/1.7 3 >59 Not Available [facility] ([facility]) [address] [place], [address], 06/22/2024 12:37:26 06/22/19 25 06/22/2024 BASIC METAB OLIC PANEL (8) BUN/creatini ne ratio 18 12-28 Not Available [facility] ([facility]) [address] [facility], [place], [address], 06/22/2024 12:37:26 06/22/19 25 06/22/2024 BASIC METAB OLIC PANEL (8) sodium 141 mmol/ L 134-14 4 Not Available [facility] ([facility]) [address] [place], [address], 06/22/2024 12:37:26 06/22/19 25 06/22/2024 BASIC METAB OLIC PANEL (8) potassium 4.7 mmol/ L 3.5-5. 2 Not Available [facility] ([facility]) [address] [place], [address], 06/22/2024 12:37:26 06/22/19 25 06/22/2024 BASIC METAB OLIC PANEL (8) chloride 102 mmol/ L 96-106 Not Available [facility] ([facility]) [address] [place], [address], 06/22/2024 12:37:26 06/22/19 25 06/22/2024 BASIC METAB OLIC PANEL (8) carbon dioxide, total 25 mmol/ L 20-29 Not Available [facility] ([facility]) [address] [facility], [place], [address], 06/22/2024 12:37:26 06/22/19 25 06/22/2024 BASIC METAB OLIC PANEL (8) calcium 9.9 mg/dL 8.7-10 .3 Not Available [facility] ([facility]) [address] [place], [address], 06/22/2024 12:37:26 06/22/19 25 06/22/2024 VITAM IN B12 vitamin B12 766 pg/mL 232-12 45 Not Available [facility] ([facility]) [address] [place], [address], 06/22/2024 12:37:27 06/22/19 25 06/21/2024 CBC WITH DIFFE RENTI AL/PL ATELE T WBC 5.4 x10e3 /uL 3.4-10 .8 Not Available [facility] ([facility]) [address] [facility], [place], [address], 06/22/2024 12:37:28 06/22/19 25 06/21/2024 CBC WITH DIFFE RENTI AL/PL ATELE T RBC 5.22 x10e6 /uL 3.77-5 .28 Not Available [facility] ([facility]) [address] [place], [address], 06/22/2024 12:37:28 06/22/19 25 06/21/2024 CBC WITH DIFFE RENTI AL/PL ATELE T hemoglobin 14.9 g/dL 11.1-1 5.9 Not Available [facility] ([facility]) [address] [place], [address], 06/22/2024 12:37:28 06/22/19 25 06/21/2024 CBC WITH DIFFE RENTI AL/PL ATELE T hematocrit 46.1 % 34.0-4 6.6 Not Available [facility] ([facility]) [address] [place], [address], 06/22/2024 12:37:28 06/22/19 25 06/21/2024 CBC WITH DIFFE RENTI AL/PL ATELE T MCV 88 fL 79-97 Not Available [facility] ([facility]) [address] [facility], [place], [address], 06/22/2024 12:37:28 06/22/19 25 06/21/2024 CBC WITH DIFFE RENTI AL/PL ATELE T MCH 28.5 pg 26.6-3 3.0 Not Available [facility] ([facility]) [address] [place], [address], 06/22/2024 12:37:28 06/22/19 25 06/21/2024 CBC WITH DIFFE RENTI AL/PL ATELE T MCHC 32.3 g/dL 31.5-3 5.7 Not Available [facility] ([facility]) [address] [facility], [place], [address], 06/22/2024 12:37:28 06/22/19 25 06/21/2024 CBC WITH DIFFE RENTI AL/PL ATELE T RDW 11.5 % 11.7-1 5.4 below low normal Not Available [facility] ([facility]) [address] [place], [address], 06/22/2024 12:37:28 06/22/19 25 06/21/2024 CBC WITH DIFFE RENTI AL/PL ATELE T platelets 252 x10e3 /uL 150-45 0 Not Available [facility] ([facility]) [address] [place], [address], 06/22/2024 12:37:28 06/22/19 25 06/21/2024 CBC WITH DIFFE RENTI AL/PL ATELE T neutrophils 55 % notest ab. Not Available [facility] ([facility]) [address] [place], [address], 06/22/2024 12:37:28 06/22/19 25 06/21/2024 CBC WITH DIFFE RENTI AL/PL ATELE T lymphs 31 % notest ab. Not Available [facility] ([facility]) [address] [facility], [place], [address], 06/22/2024 12:37:28 06/22/19 25 06/21/2024 CBC WITH DIFFE RENTI AL/PL ATELE T monocytes 11 % notest ab. Not Available [facility] ([facility]) [address] [facility], [place], [address], 06/22/2024 12:37:28 06/22/19 25 06/21/2024 CBC WITH DIFFE RENTI AL/PL ATELE T eos 2 % notest ab. Not Available [facility] ([facility]) [address] [facility], [place], [address], 06/22/2024 12:37:28 06/22/19 25 06/21/2024 CBC WITH DIFFE RENTI AL/PL ATELE T basos 1 % notest ab. Not Available [facility] ([facility]) [address] [facility], [place], [address], 06/22/2024 12:37:28 06/22/19 25 06/21/2024 CBC WITH DIFFE RENTI AL/PL ATELE T neutrophils (absolute) 2.9 x10e3 /uL 1.4-7. 0 Not Available [facility] ([facility]) [address] [facility], [place], [address], 06/22/2024 12:37:28 06/22/19 25 06/21/2024 CBC WITH DIFFE RENTI AL/PL ATELE T lymphs (absolute) 1.7 x10e3 /uL 0.7-3. 1 Not Available [facility] ([facility]) [address] [facility], [place], [address], 06/22/2024 12:37:28 06/22/19 25 06/21/2024 CBC WITH DIFFE RENTI AL/PL ATELE T monocytes(ab solute) 0.6 x10e3 /uL 0.1-0. 9 Not Available [facility] ([facility]) [address] [place], [address], 06/22/2024 12:37:28 06/22/19 25 06/21/2024 CBC WITH DIFFE RENTI AL/PL ATELE T eos (absolute) 0.1 x10e3 /uL 0.0-0. 4 Not Available [facility] ([facility]) [address] [place], [address], 06/22/2024 12:37:28 06/22/19 25 06/21/2024 CBC WITH DIFFE RENTI AL/PL ATELE T baso (absolute) 0.1 x10e3 /uL 0.0-0. 2 Not Available [facility] ([facility]) [address] [place], [address], 06/22/2024 12:37:28 06/22/19 25 06/21/2024 CBC WITH DIFFE RENTI AL/PL ATELE T immature granulocytes 0 % notest ab. Not Available [facility] ([facility]) [address] [place], [address], 06/22/2024 12:37:28 06/22/19 25 06/21/2024 CBC WITH DIFFE RENTI AL/PL ATELE T immature grans (abs) 0.0 x10e3 /uL 0.0-0. 1 Not Available [facility] ([facility]) [address] [place], [address], 06/22/2024 12:37:28 06/22/19 25 06/22/2024 PTH, INTAC T PTH, intact 22 pg/mL 15-65 Not Available [facility] ([facility]) [address] [place], [address], 06/22/2024 12:37:29 06/22/19 25 06/22/2024 VITAM IN D, 25-HY DROXY vitamin D, 25-hydroxy 33.8 NG/mL 30.0-1 00.0 Vitam in D defic iency has been defin ed by the Insti tute of Medic ine and an Endoc rine Socie ty pract ice guide line as a level of serum 25-OH vitam in D less than 20 ng/mL (1,2) . The Endoc rine Socie ty went on to furth er defin e vitam in D insuf ficie ncy as a level betwe en 21 and 29 ng/mL (2). 1. IOM (Inst itute of Medic ine). 2010. Dieta ry refer ence intak es for calci um and D. Guevara nguyễn [place]: [facility] . 2. Kush siu MF, Alexandra hui [place], Ladan off-F theresaar i TALAMANTES, et al. Evalu ation , treat ment, and preve ntion of vitam in D defic iency : an Endoc rine Socie ty clini marisol pract ice guide line. JCEM. 2010; 96(7) :1911 -30. Not Available [facility] ([facility]) [address] [facility], [place], [address], 06/22/2024 12:37:30 05/01/19 25 04/29/2024 imagi ng/di sukumar tic resul t No observ ation record ed. [place] [id number] [facility] , [place], [address], 05/01/2024 17:18:41 05/12/19 25 04/29/2024 MAMMO , sirena gomezg, tomos ynthe sis, bilat eral No observ ation record ed. [email or web address] Not Available 05/12 10:05:54 Result Notes None recorded. Problems Name Problem SNOMED Code Status Onset Date Resolution Date Notes Provider Name and Address Organization Details Recorded Time Hypertriglycer idemia 620655640 Active 2023 DO Isadora Woodsn: Lora jose,[address] [facility], [place], [address], [facility] [place] 4 17:40:30 Vitamin D deficiency 96490197 Active 2023 Mason Deras DO Attn: Lora jose,[address] [facility], [place], [address], [facility] [place] 4 17:40:31 Hyperlipidemia 43233997 Active 2023 Mason Deras DO Attn: Lora jose,[address] [facility], [place], [address], [facility] [place] 17:40:32 History of carotid artery stenosis 492435728 Active 2023 Mason Deras DO Attn: Lora jose,[address] [facility], [place], [address], [facility] - [place] 17:40:35 Problem Notes None recorded. Procedures Surgical History Date Name Laterality Status Provider Name and Address Organization Details Recorded Time 12/18/19 23 colonoscopy completed Sonal Garvin MA [facility] 06/15/2023 16:15:49 04/19/19 12 procedure on elbow completed [facility]onal Garvin [facility] 06/15/2023 16:16:28 04/19/19 07 oophorectomy completed Sonal Garvin MA [place] [facility] 06/15/2023 16:17:57 04/19/19 07 Total hysterectomy completed Sonal Garvin MA DE Dustin SUGGSMo 06/15/2023 16:20:27 04/19/19 07 Dilation and Curettage completed CARMELA Stratton 06/15/2023 16:21:32 04/19/18 87 section completed Sonal Garvin MA DE Dustin SUGGSMo 06/15/2023 16:20:09 Imaging Results None recorded. Procedure Notes None recorded. Medical Equipment None Reported. Allergies No known drug allergies Medications Name Sig Start Date Stop Date Status Note LastModified by Organization Details LastModified Time fluocinonid e 0.05 % topical solution APPLY SMALL AMOUNT TOPICALLY TO THE SCALP TWICE DAILY active Not Available Not Available No t Available rosuvastati n 5 mg tablet TAKE 1 TABLET BY MOUTH DAILY 2024 active Not Available Not Available Not Avai lable sodium,pota ssium,mag sulfates 17.5 gram-3.13 gram-1.6 gram oral soln 06/15 completed Not Available Not Available Not Available Vitals Date Recorded Systolic blood pressure Diastolic blood pressure Provider Name and Address Organization Details Last Updated DateTime 06/15/2023 128 mm[Hg] 78 mm[Hg] Mason Deras DO Attn: [address] [place], [address], [facility] 06/15/2023 15:29:23 Date Recorded Body weight Body mass index (BMI) Body height Oxygen saturation Oxygen saturation in Arterial blood by Pulse oximetry Heart rate Provider Name and Address Organization Details Last Updated DateTime 85040.9 8 g 22.3 kg/m2 152.4 cm 98 % 98 % 81 /min Sonal Garvin MA [facility] 15:12:22 Date Recorded Systolic blood pressure Diastolic blood pressure Provider Name and Address Organization Details Last Updated DateTime 06/15/2024 130 mm[Hg] 72 mm[Hg] Mason Deras DO Attn: [address] [place], [address], [facility] 06/15/2024 15:27:05 Date Recorded Body height Body mass index (BMI) Body weight Provider Name and Address Organization Details Last Updated DateTime 06/15/2024 152.4 cm 24.3 kg/m2 31590.9 g Anna Cobb RN [facility] 06/15/2024 14:58:29 Social History Question Answer Notes LastModified by Organizat ion Details LastModified Time Tobacco Smoking Status Never Smoker Sonal Garvin MA null, [facility] 06/15/2023 16:21:54 What Is Your Level Of Caffeine Consumption? Occasional Information not available 06/15/2024 What Was The Date Of Your Most Recent Tobacco Screening? 06/15/2024 Information not available 06/15/2024 Sex: Unknown Functional Status Question Answer Note LastModified by Organizat ion Details LastModified Time Do you use any illicit or recreational drugs? No Information not available 06/15/2024 What is your level of alcohol consumption? Occasional Information not available 06/15/2024 Mental Status None recorded. Family History Nothing Reported. Medical History Condition Response Coronary Artery Disease N Other N Atrial Fibrillation N High Blood Pressure N Depression N COPD N Blood Clots N Anxiety Disorder N Muscle, Joint, or Bone Problems N Arthritis N Acid Reflux (GERD) N Cancer Y Stroke N ADHD N High Cholesterol Y Liver Disease N Schizophrenia N Headaches N Thyroid Problems N Kidney or Bladder Problems N GI Problems N Eating Disorder N Skin Problems N Anemia N Heart Attack ([place]) N Diabetes N Seizures/Epilepsy N Have you had a colonoscopy in the last 1 0 years? Y Asthma N Allergies N Substance Abuse N Hepatitis N Heart Failure N Osteoporosis N Gynecological History Statement/Question Response Date of Last Pap Smear Date of Last Mammogram Obstetrics History GPAL:G 0 P 0 0 0 0 Past Encounters Encounter ID Performer Location Encounter Start Date Encounter Closed Date Diagnosis/Indication Diagnosis SNOMED-CT Code Diagnosis ICD10 Code Diagnosis Note [id number] Mason Deras, DO [facility] e - [facility] [place] [address] [address] 06/15/2023 14:40:11 06/17/2023 09:19:29 History of carotid artery stenosis 270274826 Z86.79 ROTID DUPLEX REASON FOR EXAM Carotid stenosis. COMMENTS ON THE RIGHT Peak systolic velocity of CCA of 86, ICA of 93, 170, end-diasto lic velocity 60. Smooth heterogeno us plaques in proximal ICA. ECA velocity of 98. Antegrade flow noted. Vertebral artery velocity 57. COMMENTS ON THE LEFT Peak systolic velocity of CCA of 97, ICA of 114, end-diasto lic velocity 63. Smooth heterogeno us plaque noted. ECA velocity of 141. Antegrade flow. Left vertebral artery velocity 93. OVERALL IMPRESSION 1. 50-79 percent stenosis right internal carotid artery with 16-49 percent stenosis on the left. 2. Antegrade flow noted bilateral vertebral arteries.M arch 2021 sees vascular Hyperlipidemia 24399002 E78.5 Rosuvastat in/Crestor 5 mg dailycheck routine lab Vitamin D deficiency 347 59994 E55.9 Calcium citrate/vi tamin D3 oral Hypertriglyceridemia 302 582057 E78.1 Remains on a statinstab le [id number] Mason Deras DO [facility] - [facility] [place] [address] [facility] [address] [place] [address] 06/15/2024 14:50:08 06/16/2024 10:37:22 Adult health examination 709719357 Z00.00 routine labmammogr am utdcolonos copy utd Hyperlipidemia 17758592 E78.5 Rosuvastat in/Crestor 5 mg dailycheck routine lab History of carotid artery stenosis 207272846 Z86.79 ROTID DUPLEX REASON FOR EXAM Carotid stenosis. COMMENTS ON THE RIGHT Peak systolic velocity of CCA of 86, ICA of 93, 170, end-diasto lic velocity 60. Smooth heterogeno us plaques in proximal ICA. ECA velocity of 98. Antegrade flow noted. Vertebral artery velocity 57. COMMENTS ON THE LEFT Peak systolic velocity of CCA of 97, ICA of 114, end-diasto lic velocity 63. Smooth heterogeno us plaque noted. ECA velocity of 141. Antegrade flow. Left vertebral artery velocity 93. OVERALL IMPRESSION 1. 50-79 percent stenosis right internal carotid artery with 16-49 percent stenosis on the left. 2. Antegrade flow noted bilateral vertebral arteries.M arch 2021 sees vascular will have a repeat carotid us Health Concerns Section Related Observation LastModified by Organization Detai ls LastModified Time None Recorded Concern Status LastModified by Organization Details LastModified Time None Recorded Advance Directives Directive None Recorded Payers Encounter Date Sequence Insurance Name Policy Number Policy Sood Covered Member ID Sood Member ID Guarantor Name 06/15/2023 1 [facility] (MEDICARE REPLACEMENT/A DVANTAGE - HMO) [id number] Bibi Camilo [id number] Bibi Camilo 06/15/2024 1 [facility] (MEDICARE REPLACEMENT/A DVANTAGE - HMO) [id number] Bibi Camilo [id number] Bibi Camilo Notes Date Note Type Note Provider Name and Address Organization Details Recorded Time 06/15/2023 text/html Establish care Mason Deras DO Attn: [address] [facility] [place], [address], [facility] 06/15/2023 18:39:47 06/15/2024 text/html annual physicaldoing well has been told walking with a little limphaving no pain Mason Deras DO Attn: [address] [facility], [place], [address], [facility] 06/15/2024 17:48:30 OBGyn Episode No OBEpisode recorded.
--- OUTSIDE RECORDS SUMMARY | 2024-09-18 16:34 | XMS_ITS | Clinical Summary ---
Author Organization [facility] Address [address] [place] [address] Care Team Providers Care Gravity Prospecting Observer Helper Name Role Phone Mason Deras DO Primary [...] 04/19 Assessment & Plan (05/04/2022 1:23 PM WRINGER MACHINE OPERATOR): Chart reviewed COVID 08/22/2021 Assessment & Plan [...] Assessment & Plan (07/30/2021 8:44 AM CDT): [place] Well woman exam 11/13/2020 Full code status 05/01/2020 Assessment & Plan (05/02/2021 7:36 AM WRINGER MACHINE OPERATOR): No changes Assessment & Plan (05/01/2020 9:26 AM WRINGER MACHINE OPERATOR): Discussed with patient approximately 20minutes End of life issues/Advanced Directives/Healthcare Surrogate. Discussed DNR. Encouraged to discuss further with family and consult deli manager or complete [place] approved form, which I would be glad to assist them with completion. All questions answered. polst form filled out and signed Immunizations Immunization Administration Dates Next Due Influenza, Quadrivalent, Hig h Dose, Preservative Free, Intrr 02/12/2020 Influenza, Unspecified 01/17/2022,01/17/2021 Pfizer SARS-CoV-2 Monovalent Vaccination (12+ Yrs) PURPLE 04/05/2021,07/10/2020 Pneumococcal Conjugate PCV 13 05/02/2021 Pneumococcal Polysaccharide PPV23 05/01/2020 Surgical History Surgery Date Site/Laterality Comments ELBOW SURGERY 04/19/2015 - 04/18/2016 HYSTERECTOMY 08/17/2006 - 09/16/2006 uterine cancer SECTION OOPHORECTOMY 08/17/2006 - 09/16/2006 SALPINGECTOMY 08/17/2006 - 09/16/2006 FRACTURE SURGERY March Medical History Medical History Date Comments Vertigo 2018 Cancer (HCC) 2013 uterus ...2013.. total hysterectomy Alopecia Uterine cancer (HCC) Osteoporosis GERD (gastroesophageal reflux disease) Colon polyp Hyperlipidemia Family History Medical History Relation Name Comments Colon cancer Brother 1 Cancer Brother 2 Zia Levin Arthritis Father Bari Levin Heart disease Father Bari Levin Hypertension Father Bari Levin Hypertension Mother Griffith Levin Stroke Mother Griffith Levin Miscarriages / Stillbirths Sister Alana Levin Breast cancer Neg Hx Ovarian cancer Neg Hx Pancreatic cancer Neg Hx Prostate cancer Neg Hx Uterine cancer Neg Hx Relation Name Status Comments Brother 1 Brother 2 Zia Levin Father Bari Levin Mother Gladis Levin Alive Sister Alana Levin Social History Tobacco Use Types Packs/Day Years [...] on file Legal Sex Female 11:22 AM WRINGER MACHINE OPERATOR Gender Identity Female 04/15/2020 12:00 PM WRINGER MACHINE OPERATOR Sexual Orientation Not on file Obstetrics History Para Term AB IAB SAB Ectopic Multiple Livin g Live Births 3 3 3 3 Date Outcome GA Total Labor Labor/2nd/3rd Weight Sex Type Anes PTL Marcy A1 A5 Name Clin Term Term Term Comments Age of 1st cycle: 12 Age of 1st delivery: 28 Total Hyst Last Filed Vital Signs Vital Sign Reading [...] 01/20/2024 1:28 PM CDT Plan of Treatment Health Maintenance Due Date Last Done Comments DTaP/Tdap/Td Vaccine (1 - Tdap) 1965 Hepatitis B Screening 1972 Zoster Vaccine (1 of 2) 2004 Depression Screening 05/04/2023 05/04/2022, 05/02/2021, 05/01/2020 Fall Risk Assessment 05/04/2023 05/04/2022, 05/02/2021, 05/01/2020 Covid-19 Vaccine (4 - 2023-2 5 season) 2023 04/05/2021, 07/10/2020, 06/17/2020 Influenza Vaccine (Season Ended) 2024 04/05/2022, 01/17/2022, 03/31/2021, Additional history exists Well Visit 65+ 01/19/2025 01/20/2024, 05/2022, 05/04/2022, Additional history exists Osteoporosis Screening-Bone Density Scan 03/04/2025 03/04/2023, 01/02/2021 Breast Cancer Screening-Mammogram 04/29/2025 04/29/2024, 04/28/2023, 04/27/2022, Additional history exists Colon Cancer Screening-Colonoscopy 11/26/20272022 Pneumococcal vaccine 65+ Completed 05/02/2021, 04/19 Hepatitis C Screening Completed 05/08/2021 Medical Devices Implanted Type Area Credit Rating Checker Device Identifier Shelf Expiration Date Model / Serial / Lot Other - See Comments Other - see comments Bilateral : Tooth Description:Lower left Plate Plate Left: Elbow Procedures Procedure Name Priority Date/Time Associated Diagnosis Comments SCREENING MAMMOGRAM BILATERAL W ROBBIE Schedule Routine, Read Routine (OP Routine) 04/29/2024 7:53 AM WRINGER MACHINE OPERATOR Breast cancer screening by mammogram DEXA AXIAL SKELETON BONE DENSITY 1 OR MORE SITES Schedule Routine, Read Routine (OP Routine) 03/04/2023 2:08 PM WRINGER MACHINE OPERATOR Well woman exam with routine gynecological exam Age-related osteoporosis without current pathological fracture COLONOSCOPY 11/25/2022 7:13 AM CDT HEPATITIS C ANTIBODY Routine 05/08/2021 11:28 AM WRINGER MACHINE OPERATOR Screening for colon cancer from Last 3 Months or Most Recently Relevant to Health Maintenance Results * SCREENING MAMMOGRAM BILATERAL W ROBBIE (04/29/2024 7:53 AM WRINGER MACHINE OPERATOR) Anatomical Region Laterality Modality Breast Bilateral Mammography Impressions 05/01/2024 7:58 AM WRINGER MACHINE OPERATOR BI-RADS ATLAS category (overall): 1 - Negative There is no mammographic evidence of malignancy. A 1 year screening mammogram is recommended. The patient has been or will be contacted. We recommend annual screening mammography for women at average risk of breast cancer beginning at age 40, based on guidelines of the [place] [employer] (ACR Practice Parameter for the Performance of Screening and Diagnostic Mammography) and [place] [employer]. For women with and elevated risk of breast cancer, please refer to the ACR Practice Parameter for specific screening recommendations. The patient will be entered into a reminder system with a target due date of 1 year for her next screening exam. Narrative 05/01/2024 7:58 AM WRINGER MACHINE OPERATOR SCREENING MAMMOGRAM BILATERAL W ROBBIE: 04/29/24 The [...] 1 Or 2 Site (03/04/2023 2:08 PM WRINGER MACHINE OPERATOR) Anatomical Region Laterality Modality Body N/A Mammography 03/08/2023 5:11 AM WRINGER MACHINE OPERATOR Narrative 03/08/2023 5:12 AM WRINGER MACHINE OPERATOR EXAM DESCRIPTION: DEXA AXIAL SKELETON BONE DENSITY 1 OR MORE SITES REASON FOR STUDY: 67 y/o year old F with given history of: Postmenopausal status. History of prior fracture and parent with hip fracture. Patient has taken/is taking vitamin-D and calcium. History of uterine carcinoma Credit Rating Checker/Model: [employer] A (S/N [id number]) CLINICAL INFORMATION: Current height: 60 inches Maximum [...] Anayeli Uribe M.D. TW: TW Report ID: [id number] Reading Location: [place] [address] Procedure Note Anayeli Uribe MD - 03/08/2023 EXAM DESCRIPTION: DEXA AXIAL SKELETON BONE DENSITY 1 OR MORE SITES REASON FOR STUDY: 67 y/o year old F with given history of:Postmenopausal status. History of prior fracture and parent with hip fracture. Patienthas taken/is taking vitamin-D and calcium. History of uterine carcinoma Credit Rating Checker/Model: [employer] A (S/N [id number]) CLINICAL INFORMATION: Current height: 60 inches Maximum [...] Electronically signed by Anayeli Uribe M.D. TW: IVET Report ID: [id number] Reading Location: [id number] us Gabby Argueta MD IMG DXA PROCEDURES Final Resul t * COLONOSCOPY (11/25/2022 7:13 AM CDT) Anatomical Region Laterality Modality Other Narrative Procedure Note Herve Bledsoe MD - 11/25/2022 7:13 AM CDT [facility] GI ENDOSCOPY Patient Name: Bibi Camilo Procedure Date: 11/25/2022 7:13 AM Date of : 1955 Admit Type: Outpatient Age: 67 Gender: Female Attending MD: Herve Bledsoe M.D. Room: [facility] ENDOSCOPY ROOM 06 Note Status: Finalized Procedure: [...] The scope was passed under direct vision.The [id number]-[id number] colonoscope was introduced through theanus and advanced [...] On: 11/25/2022 7:13 AM Recognized by the [place] [employer] for promoting quality in endoscopy us Herve Bledsoe MD ENDOSCOPY PROCEDURES Final Resul t * Hepatitis C antibody (05/08/2021 11:28 AM WRINGER MACHINE OPERATOR) Hep C Ab <0.1 0.0 - 0.9 s/co ratio [facility] - 01 Comment: Negative: < 0.8 Indeterminate: 0.8 - 0.9 Positive: > 0.9 The CDC recommends that a positive HCV antibody result be followed up with a HCV Nucleic Acid Amplification test (173127). Blood specimen (specimen) 05/08/2021 11:28 AM WRINGER MACHINE OPERATOR 05/08/2021 Narrative [facility] - 05/09/2021 7:36 AM WRINGER MACHINE OPERATOR Performed at: [facility] [place] [id number] Unit Secretary: Geo Batres PhD, Phone: [phone] Mason Deras DO LAB MICROBIOLOGY - GENER AL ORDERABLES Final Result Performing Organization Address City/State/[facility] Co co Phone Number [facility] - 01 from Last 3 Months or Most Recently Relevant to Health [place] [address] [facility] MEDICARE ADVANTAGE [facility] MEDICARE ADVANTAGE [facility] MEDICARE ADVANTAGE Advance Directives For more information, please contact: [phone] Documents on File Type Date Recorded Patient Heel Sewer Expl anation ADVANCE DIRECTIVE 05/01/2020 Care Teams Gravity Prospecting Observer Helper Relationship Specialty Start Date End Date Mason Deras DO PCP - General Family Medicine 04/15/20
== END 2024-09-18 16:28 | disposition home or self-care (01) ==
PROVIDERS: PCP Family Medicine
DX: I65.29 Occlusion and stenosis of unspecified carotid artery (principal)
CPT/HCPCS: 93880